=== PATIENT | female | born 1985 | race Two or more races ===

== ENCOUNTER 2016-11-15 05:49 | Day surgery (SDC) | payer OTHER, SELFPAY ==
[2016-11-15] MEDS ORDERED: Lactated Ringers 1,000 ML IV SCH (06:30)
[2016-11-15] MEDS ORDERED: Ketamine HCl 50 MG/ML IV ONE (08:00)
[2016-11-15] MEDS ORDERED: DIPRIVAN 200 MG/20 ML IV ONE (08:00)
[2016-11-15 08:26] VITALS: O2SAT 100
[2016-11-15 08:29] VITALS: BP 140/81; PULSE 61
--- NOTE | 2016-11-15 08:58 | OP ---
SURGERY DATE/TIME: 11/15/2016 0655 PREOPERATIVE DIAGNOSIS: Epigastric pain. POSTOPERATIVE DIAGNOSIS: Gastritis. PROCEDURE: Esophagogastroduodenoscopy with biopsy. SURGEON: Dr. Raymond. ANESTHESIA: Medications were given by the anesthesia department. BRIEF HISTORY: The patient is a 31 year old white female who presents now with epigastric pain. She reports taking medications and have been somewhat helpful but she persists to have the pain which she reports has been going on for two weeks. The patient also reports she is had gallbladder ultrasound which was apparently normal. The patient was felt the need to have endoscopic evaluation. She was appraised of the risks of the procedure including the risk of perforation, phlebitis, untoward reaction to medication, bleeding, and missed lesions. The patient verbalized her understanding and desired to have the procedure performed. DESCRIPTION OF PROCEDURE: The patient was given medications by the anesthesia department. She had continuous pulse oximetry, ECG monitoring, intermittent blood pressure monitoring and tidal CO2 monitoring during the examination. She was placed in the left lateral decubitus position. A bite block was placed. The flexible Olympus gastroscope was used to intubate the oropharynx. A view of the larynx was obtained and was normal. The scope was easily introduced in the esophagus which appeared to be normal throughout its length. The stomach was entered where some retained food stuffs were present but appeared to be quite oily in nature. The scope was passed along the greater curvature of the stomach. The gastric rugal folds distended nicely with insufflation of air. The scope was passed along the greater curvature of the stomach to the antrum. The pylorus is encountered and intubated and duodenum inspected and found to be normal. The scope is withdrawn back into the stomach. Again, a retroflex view was obtained of the lesser curvature, fundus and cardia regions of the stomach and these appeared to be normal as well. The scope was then redirected towards the antrum and biopsies were obtained to rule out the presence of Helicobacter pylori-type organisms. The scope was then removed from the patient who tolerated the procedure well and was sent back to outpatient recovery in good condition.
== END 2016-11-15 08:25 | disposition home or self-care (01) ==
LOC: SDC 05:49
PROVIDERS: ATTEND Family Medicine
PROC: 0DB68ZX Excision of Stomach, Via Natural or Artificial Opening Endoscopic, Diagnostic (ICD-10-PCS; principal; 2016-11-15)
DX: K29.70 Gastritis, unspecified, without bleeding (principal)
CPT/HCPCS: 00740; 36415; 84703; 88305; J2704

== ENCOUNTER 2018-05-22 07:29 | Emergency (ER) | payer OTHER, SELFPAY ==
[2018-05-22] MEDS ORDERED: Zofran 4 MG/2 ML VIAL IV ONE (08:02)
[2018-05-22] MEDS ORDERED: Sodium Chloride 0.9% 1000 ML 1,000 ML IV STA (08:02)
[2018-05-22] MEDS ORDERED: Hydromorphone 1 mg/ml Ampule IV ONE (08:02)
--- NOTE | 2018-05-22 08:02 | ERPHSYRPT ---
- History of Present Illness Time Seen by Provider: 05/22/18 07:50 Historian: patient Exam Limitations: no limitations Patient Subjective Stated Complaint: pt here for abd pain to left side that radiates to middle. pain started yesterday and getting worse, with loose stools and n/v. no fever Triage Nursing Assessment: pt walked in alert, crying, resp easy, skin w/d/p, abd tender to touch but soft, no edema Physician History: 33 y/o obese female with h/o c section in the past presents with left upper quadrant abd pain, vomiting x1 and diarrhea that began yesterday. no brbpr , no vaginal bleeding. pt has had a btl. no other abd surgeries Activities at Onset: none Quality: sharpness, stabbing Abdominal Pain Onset Location: [facility] Pain Radiation: periumbilical Severity of Pain-Max: moderate Severity of Pain-Current: moderate Modifying Factors: Improves With: nothing Associated Symptoms: diarrhea, loss of appetite, nausea, vomiting Previous symptoms: no prior history Allergies/Adverse Reactions: No Known Drug Allergies Allergy (Verified 05/22/18 07:45) Hx Tetanus, Diphtheria Vaccination/Date Given: Yes Hx Influenza Vaccination/Date Given: No Hx Pneumococcal Vaccination/Date Given: No Immunizations Up to Date: Yes - Review of Systems Constitutional: No Symptoms Eyes: No Symptoms Ears, Nose, & Throat: No Symptoms Respiratory: No Symptoms Cardiac: No Symptoms Abdominal/Gastrointestinal: Abdominal Pain, Nausea, Vomiting, Diarrhea Genitourinary Symptoms: No Symptoms Musculoskeletal: No Symptoms Skin: No Symptoms Neurological: No Symptoms Psychological: No Symptoms Endocrine: No Symptoms Hematologic/Lymphatic: No Symptoms Immunological/Allergic: No Symptoms All Other Systems: Reviewed and Negative - Past Medical History Pertinent Past Medical History: No Neurological History: No Pertinent History ENT History: No Pertinent History Cardiac History: No Pertinent History Respiratory History: No Pertinent History Endocrine Medical History: No Pertinent History Musculoskeletal History: No Pertinent History GI Medical History: GERD, Other History: No Pertinent History Psycho-Social History: No Pertinent History Female Reproductive Disorders: No Pertinent History Other Medical History: frequent UTIs,heartburn - Past Surgical History Past Surgical History: Yes Neuro Surgical History: No Pertinent History Cardiac: No Pertinent History Respiratory: No Pertinent History Gastrointestinal: No Pertinent History Genitourinary: Other Musculoskeletal: No Pertinent History Female Surgical History: No Pertinent History Other Surgical History: ureteral transplant - Social History Smoking Status: Current every day smoker How long have you smoked: 14 Exposure to second hand smoke: Yes Drug Use: none Patient Lives Alone: No - Female History Hx Last Menstrual Period: apr Hx Now: No - Nursing Vital Signs Nursing Vital Signs: Initial Vital Signs Temperature 97.9 F 05/22/18 07:40 Pulse Rate 83 05/22/18 07:40 Respiratory Rate 16 05/22/18 07:40 Blood Pressure 147/89 05/22/18 07:40 O2 Sat by Pulse Oximetry 100 05/22/18 07:40 Pain Scale Pain Intensity 6 - Physical Exam General Appearance: mild distress, alert, anxiety Eye Exam: PERRL/EOMI, eyes nml inspection Ears, Nose, Throat Exam: normal ENT inspection, pharynx normal, moist mucous membranes Neck Exam: normal inspection, non-tender, supple, full range of motion Respiratory Exam: normal breath sounds, lungs clear, airway intact, No respiratory distress, No accessory muscle use, No rhonchi, No wheezing, No stridor Cardiovascular Exam: regular rate/rhythm, normal heart sounds, normal peripheral pulses Gastrointestinal/Abdomen Exam: soft, normal bowel sounds, tenderness, guarding, rebound (+/-) Pelvic Exam: not done Rectal Exam: not done Back Exam: normal inspection, normal range of motion, No CVA tenderness, No vertebral tenderness Extremity Exam: normal inspection, normal range of motion, pelvis stable Neurologic Exam: alert, oriented x 3, cooperative, phonograph mechanic II-XII nml as tested Skin Exam: normal color, warm, dry Lymphatic Exam: No adenopathy SpO2 Interpretation: normal SpO2: 100 Oxygen Delivery: Room Air - Course Nursing assessment & vital signs reviewed: Yes Ordered Tests: Active Orders 24 hr Category Date Time Status Clean Catch Urine Specimen STAT Care 05/22/18 08:02 Active IV Insertion STAT Care 05/22/18 08:02 Active ABDOMEN AND PELVIS W CONTRAST [CT] Stat Exams 05/22/18 08:02 Completed AMYLASE Stat Lab 05/22/18 07:50 Completed CBC W DIFF Stat Lab 05/22/18 07:50 Completed CMP Stat Lab 05/22/18 07:50 Completed CULTURE,URINE Stat Lab 05/22/18 07:50 Received LIPASE Stat Lab 05/22/18 07:50 Completed Lactic Acid Stat Lab 05/22/18 08:07 Completed UA W/RFX UR CULTURE Stat Lab 05/22/18 07:50 Completed Medication Summary Discontinued Medications Generic Name Dose Route Start Last Admin Trade Name Andreas PRN Reason Stop Dose Admin Hydromorphone HCl 1 mg 05/22/18 08:02 05/22/18 08:13 Hydromorphone 1 Mg/Ml Ampule IV 05/22/18 08:03 1 mg STAT ONE Administration Hydromorphone HCl Confirm 05/22/18 08:10 Hydromorphone 1 Mg/Ml Ampule Administered 05/22/18 08:11 Dose 1 mg .ROUTE .STK-MED ONE Sodium Chloride 1,000 mls @ 999 mls/hr 05/22/18 08:02 05/22/18 09:43 Sodium Chloride 0.9% 1000 Ml IV 05/22/18 09:02 Infused .Q1H1M STA Infusion Sodium Chloride Confirm 05/22/18 08:10 Sodium Chloride 0.9% 1000 Ml Administered 05/22/18 08:11 Dose 1,000 mls @ ud .ROUTE .STK-MED ONE Ondansetron HCl 4 mg 05/22/18 08:02 05/22/18 08:13 Zofran 4 Mg/2 Ml Vial IV 05/22/18 08:03 4 mg STAT ONE Administration Ondansetron HCl Confirm 05/22/18 08:10 Zofran 4 Mg/2 Ml Vial Administered 05/22/18 08:11 Dose 4 mg .ROUTE .STK-MED ONE Lab/Rad Data: Laboratory Result Diagrams 05/22/18 07:50 05/22/18 07:50 Laboratory Results 05/22/18 05/22/18 05/22/18 Range/Units 08:07 07:50 07:50 WBC (4.0-10.5) K/mm3 RBC (4.1-5.4) M/mm3 Hgb (12.0-16.0) gm/dl Hct (35-47) % MCV (78-100) fl MCH (26-32) pg MCHC (32-36) g/dl RDW (11.5-14.0) % Plt Count (150-450) K/mm3 MPV (6-9.5) fl Gran % (36.0-66.0) % Eos # (Auto) (0-0.5) Absolute Lymphs (auto) (1.0-4.6) Absolute Monos (auto) (0.0-1.3) Lymphocytes % (24.0-44.0) % Monocytes % (0.0-12.0) % Eosinophils % (0.00-5.0) % Basophils % (0.0-0.4) % Absolute Granulocytes (1.4-6.9) Basophils # (0-0.4) Sodium 140 (137-145) mmol/L Potassium 4.3 (3.5-5.1) mmol/L Chloride 104 (98-107) mmol/L Carbon Dioxide 26 (22-30) mmol/L Anion Gap 13.8 (5-15) MEQ/L BUN 17 (7-17) mg/dL Creatinine 0.95 (0.52-1.04) mg/dL Estimated GFR > 60.0 ML/MIN Glucose 102 (74-106) mg/dL Lactic Acid 1.3 (0.4-2.0) Calcium 9.5 (8.4-10.2) mg/dL Total Bilirubin 0.70 (0.2-1.3) mg/dL AST 27 (14-36) U/L ALT 16 (0-35) U/L Alkaline Phosphatase 57 (38-126) U/L Serum Total Protein 8.5 H (6.3-8.2) g/dL Albumin 4.7 (3.5-5.0) g/dL Amylase 77 (30-110) U/L Lipase 168 (23-300) U/L Urine Color YELLOW (YELLOW) Urine Appearance CLOUDY (CLEAR) Urine pH 5.0 (5-6) Ur Specific [place] 1.023 (1.005-1.025) Urine Protein 30 (Negative) Urine Ketones NEGATIVE (NEGATIVE) Urine Blood NEGATIVE (0-5) Al/ul Urine Nitrite NEGATIVE (NEGATIVE) Urine Bilirubin NEGATIVE (NEGATIVE) Urine Urobilinogen NEGATIVE (0-1) mg/dL Ur Leukocyte Esterase NEGATIVE (NEGATIVE) Urine WBC (Auto) 0-2 (0-5) /HPF Urine RBC (Auto) NONE (0-2) /HPF U Epithel Cells (Auto) PACKED (FEW) /HPF Urine Bacteria (Auto) NONE (NEGATIVE) /HPF Urine Mucus (Auto) SLIGHT (NEGATIVE) /HPF Urine Culture Reflexed YES (NO) Urine Glucose NEGATIVE (NEGATIVE) mg/dL 05/22/18 Range/Units 07:50 WBC 6.3 (4.0-10.5) K/mm3 RBC 4.87 (4.1-5.4) M/mm3 Hgb 14.2 (12.0-16.0) gm/dl Hct 43.3 (35-47) % MCV 88.9 (78-100) fl MCH 29.2 (26-32) pg MCHC 32.8 (32-36) g/dl RDW 13.2 (11.5-14.0) % Plt Count 385 (150-450) K/mm3 MPV 9.0 (6-9.5) fl Gran % 66.3 H (36.0-66.0) % Eos # (Auto) 0.20 (0-0.5) Absolute Lymphs (auto) 1.29 (1.0-4.6) Absolute Monos (auto) 0.62 (0.0-1.3) Lymphocytes % 20.4 L (24.0-44.0) % Monocytes % 9.8 (0.0-12.0) % Eosinophils % 3.2 (0.00-5.0) % Basophils % 0.3 (0.0-0.4) % Absolute Granulocytes 4.20 (1.4-6.9) Basophils # 0.02 (0-0.4) Sodium (137-145) mmol/L Potassium (3.5-5.1) mmol/L Chloride (98-107) mmol/L Carbon Dioxide (22-30) mmol/L Anion Gap (5-15) MEQ/L BUN (7-17) mg/dL Creatinine (0.52-1.04) mg/dL Estimated GFR ML/MIN Glucose (74-106) mg/dL Lactic Acid (0.4-2.0) Calcium (8.4-10.2) mg/dL Total Bilirubin (0.2-1.3) mg/dL AST (14-36) U/L ALT (0-35) U/L Alkaline Phosphatase (38-126) U/L Serum Total Protein (6.3-8.2) g/dL Albumin (3.5-5.0) g/dL Amylase (30-110) U/L Lipase (23-300) U/L Urine Color (YELLOW) Urine Appearance (CLEAR) Urine pH (5-6) Ur Specific [place] (1.005-1.025) Urine Protein (Negative) Urine Ketones (NEGATIVE) Urine Blood (0-5) Al/ul Urine Nitrite (NEGATIVE) Urine Bilirubin (NEGATIVE) Urine Urobilinogen (0-1) mg/dL Ur Leukocyte Esterase (NEGATIVE) Urine WBC (Auto) (0-5) /HPF Urine RBC (Auto) (0-2) /HPF U Epithel Cells (Auto) (FEW) /HPF Urine Bacteria (Auto) (NEGATIVE) /HPF Urine Mucus (Auto) (NEGATIVE) /HPF Urine Culture Reflexed (NO) Urine Glucose (NEGATIVE) mg/dL - Progress Progress: improved, pain not gone completely, re-examined Progress Note: 05/22/18 10:01 ct scan abd/pelvis- small bowel enteritis; nl appendix. pt clinically improved. Counseled pt/family regarding: lab results, diagnosis, need for follow-up, rad results - Departure Time of Disposition: 10:02 Departure Disposition: Home Clinical Impression: Enteritis Condition: Stable Critical Care Time: No Referrals: LIZBETH BRAUN [Primary Care Provider] - Additional Instructions: clear liquid diet until abdominal pain is gone then advance diet as tolerated. follow up with primary doctor for further management. Prescriptions: Hydrocodone/APAP 5/325 [[place] 5/325 mg] 1 each PO Q6H PRN PRN #10 tablet MDD 4 PRN Reason: Pain Ciprofloxacin [Cipro 500 MG] 500 mg PO BID #14 tablet Metronidazole 500 mg [Flagyl 500 MG] 500 mg PO TID #21 tablet
[2018-05-22] MEDS ORDERED: Hydromorphone 1 mg/ml Ampule ONE (08:10)
[2018-05-22] MEDS ORDERED: Zofran 4 MG/2 ML VIAL ONE (08:10)
[2018-05-22] MEDS ORDERED: Sodium Chloride 0.9% 1000 ML 1,000 ML ONE (08:10)
[2018-05-22 08:11] LABS: BASOPHIL % 0.3 % (0.0-0.4); Basophil (Absolute #) 0.02 (0-0.4); Eosinophil % 3.2 % (0.00-5.0); Granulocytes % 66.3 % (36.0-66.0); Hematocrit 43.3 % (35-47); Hemoglobin 14.2 gm/dl (12.0-16.0); Lymphocyte (Absolute #) 1.29 (1.0-4.6); Lymphocytes % 20.4 % (24.0-44.0); Mean Cell Volume 88.9 fl (78-100); Mean Corpuscular Hemoglobin 29.2 pg (26-32); Mean Corpuscular Hgb Concent. 32.8 g/dl (32-36); Monocyte (Absolute #) 0.62 (0.0-1.3); Monocytes % 9.8 % (0.0-12.0); Platelet Count 385 K/mm3 (150-450); Red Blood Count 4.87 M/mm3 (4.1-5.4); Red Cell Distribution Width 13.2 % (11.5-14.0); White Blood Count 6.3 K/mm3 (4.0-10.5)
[2018-05-22 08:16] LABS: Appearance CLOUDY (CLEAR); Bilirubin NEGATIVE (NEGATIVE); Blood NEGATIVE Ery/ul (0-5); Glucose NEGATIVE (NEGATIVE); Ketones NEGATIVE (NEGATIVE); Leukocyte Esterase NEGATIVE (NEGATIVE); Nitrite NEGATIVE (NEGATIVE); Protein,Urine Dip 30 (Negative); Specific Gravity 1.023 (1.005-1.025); Urobilinogen NEGATIVE mg/dL (0-1)
[2018-05-22 08:27] LABS: ALBUMIN 4.7 g/dL (3.5-5.0); ALKALINE PHOSPHATASE 57 U/L (38-126); AMYLASE 77 U/L (30-110); ANION GAP 13.8 MEQ/L (5-15); BLOOD UREA NITROGEN 17 mg/dL (7-17); CHLORIDE 104 mmol/L (98-107); Calcium 9.5 mg/dL (8.4-10.2); Carbon Dioxide 26 mmol/L (22-30); Creatinine 1 0.95 mg/dL (0.52-1.04); Glucose 102 mg/dL (74-106); LIPASE 168 U/L (23-300); Potassium 4.3 mmol/L (3.5-5.1); SGOT/AST 27 U/L (14-36); SGPT/ALT 16 U/L (0-35); SODIUM 140 mmol/L (137-145); Total Protein 8.5 g/dL (6.3-8.2)
--- NOTE | 2018-05-22 09:17 | XRAY ---
Indication: Left upper quadrant abdominal pain. History infection. Multiple contiguous axial images obtained through the abdomen and pelvis using 80 cc Isovue 370 contrast only. Comparison: April 25, 2016. Lung bases demonstrates minimal bibasilar dependent atelectasis with stable left base subsegmental atelectasis/scarring. New incompletely visualized 4 mm right base noncalcified nodule, probably granulomatous in this demographic. No infiltrate or effusion. Heart is not enlarged. Noncontrasted stomach and bowel loops appear nonobstructed. Ileal bowel loops in the right lower quadrant now appears mildly fluid distended with wall thickening/enhancement, focal ileus versus enteritis. Involvement of the terminal ileum also suggests Crohn's disease. Normal appendix. No free fluid/air. Stable partial left ureteral duplication. Remaining liver, gallbladder, pancreas, spleen, adrenal glands, kidneys, ureters, bladder, and aorta appear normal in CT appearance and attenuation. No pathologic retroperitoneal lymphadenopathy. Osseous structures intact. No ventral or inguinal hernias. Impression: 1. New mild fluid distended ileal bowel loops with wall thickening/enhancement including the terminal ileum. Partial differential includes focal ileus, enteritis, and Crohn's disease. 2. 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 3. New right lower lobe noncalcified micronodule probably granulomatous in this demographic. 4. Remaining CT abdomen/pelvis with contrast exam is negative. CT DI 23.68
[2018-05-22] MEDS ORDERED: Cipro 500 MG PO ONE (10:00)
[2018-05-22] MEDS ORDERED: Flagyl 500 MG PO ONE (10:00)
[2018-05-22] MEDS ORDERED: solu-MEDROL 125 MG IV ONE (10:01)
[2018-05-22] MEDS ORDERED: Cipro 500 MG ONE (10:08)
[2018-05-22] MEDS ORDERED: solu-MEDROL 125 MG ONE (10:09)
[2018-05-22] MEDS ORDERED: Flagyl 500 MG ONE (10:09)
[2018-05-22 10:21] VITALS: BP 126/69; PULSE 62; O2SAT 99
[2018-05-22] MEDS ORDERED: Norco 10/325 MG Tablet PO ONE (10:38)
[2018-05-22] MEDS ORDERED: Norco 10/325 MG Tablet ONE (10:40)
== END 2018-05-22 10:33 | disposition home or self-care (01) ==
LOC: ED 07:29
DX: K52.9 Noninfective gastroenteritis and colitis, unspecified (principal); R10.12 Left upper quadrant pain; R11.2 Nausea with vomiting, unspecified
CPT/HCPCS: 36415; 74177; 80053; 81001; 82150; 83605; 83690; 85025; 87086; 96360; 96374; 96375; 99284; A9270; J1170; J2405; J2930

== ENCOUNTER 2019-10-06 00:03 | Emergency (ER) | payer OTHER ==
[2019-10-06 00:37] VITALS: O2SAT 100
--- NOTE | 2019-10-06 00:48 | ERPHSYRPT ---
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 Patient A/O times 4. Patient answers questions appropriatley. Laceration noted to back of left lower extremity that measures 9 CM. No active bleeding noted. Edges of wound appear rolled under. Adipose tissue noted. No drainage or S/S of infection noted. Cap refill of left great toe < 3 seconds. Slight swelling noted to back of leg. Patient states area is burning like fire. Patient able to apply weight to leg. Physician History: About 50 minutes ago at home pt was standing on a chair and her left leg went through it with resultant laceration to her left leg. Pt denies numbness of her left leg/foot. Last tetanus was within 5 years. Allergies/Adverse Reactions: No Known Drug Allergies Allergy (Verified 10/06/19 00:37) Hx Tetanus, Diphtheria Vaccination/Date Given: No Hx Influenza Vaccination/Date Given: No Hx Pneumococcal Vaccination/Date Given: No Immunizations Up to Date: Yes Travel Risk - International Travel Have you traveled outside of the country in past 3 weeks: No Have you or anyone close to you been diagnosed with or: No Do your reside in a community with a known COVID-19 case?: Yes If Yes where:: [facility] - Coronavirus Screening Has patient experienced Coronavirus symptoms: No - Review of Systems Musculoskeletal: Other (laceration to left leg) - Past Medical History Pertinent Past Medical History: No Neurological History: No Pertinent History ENT History: No Pertinent History Cardiac History: No Pertinent History Respiratory History: No Pertinent History Endocrine Medical History: No Pertinent History Musculoskeletal History: No Pertinent History GI Medical History: GERD, Other History: No Pertinent History Psycho-Social History: No Pertinent History Female Reproductive Disorders: No Pertinent History Other Medical History: frequent UTIs,heartburn - Past Surgical History Past Surgical History: Yes Neuro Surgical History: No Pertinent History Cardiac: No Pertinent History Respiratory: No Pertinent History Gastrointestinal: No Pertinent History Genitourinary: No Pertinent History, Other Musculoskeletal: No Pertinent History Female Surgical History: Tubal Ligation Other Surgical History: ureteral transplant - Social History Smoking Status: Current every day smoker How long have you smoked: 6 years Exposure to second hand smoke: Yes Drug Use: none Patient Lives Alone: No - Female History Hx Last Menstrual Period: Tubal Hx Now: No - Nursing Vital Signs Nursing Vital Signs: Initial Vital Signs Temperature 98.1 F 10/06/19 00:22 Pulse Rate 86 10/06/19 00:22 Respiratory Rate 16 10/06/19 00:22 Blood Pressure 159/95 10/06/19 00:22 O2 Sat by Pulse Oximetry 100 10/06/19 00:22 Pain Scale Pain Intensity 5 - Physical Exam General Appearance: alert Hips Exam: left: normal range of motion Legs Exam: right leg: other (9cm irregular laceration to posteriolateral mid aspect of left leg with mild tenderness.), left leg: normal range of motion Knees Exam: left knee: normal range of motion Ankle Exam: left ankle: normal range of motion Foot Exam: left foot: normal range of motion Mental Status Exam: alert, cooperative SpO2 Interpretation: normal SpO2: 100 O2 Delivery: Room Air Procedures - Laceration/Wound Repair Left Posterior Lateral Calf Wound Location: Left, lower leg Wound Length (cm): 9 Wound's Depth, Shape: irregular Wound Explored: clean Irrigated: Yes Hibiclens Prep: Yes Anesthesia: 1% lidocaine w/ Epi Volume Anesthetic (ccs): 2 Wound Repaired With: sutures Suture Size/Type: 4-0, prolene Number of Sutures: 35 Layer Closure?: No - Course Nursing assessment & vital signs reviewed: Yes - Radiology Exams Left Lower Leg X-ray Interpretation: Interpreted by me (no fx) Ordered Tests: Active Orders 24 hr Category Date Time Status Prepare for Sutures STAT Care 10/06/19 00:54 Active Sutures STAT Care 10/06/19 00:54 Active Wound Care STAT Care 10/06/19 00:54 Active LOWER LEG Stat Exams 10/06/19 00:53 Taken Medication Summary Discontinued Medications Generic Name Dose Route Start Last Admin Trade Name Freq PRN Reason Stop Dose Admin Cephalexin HCl 500 mg 10/06/19 05:24 Keflex 500 Mg PO 10/06/19 05:25 STAT ONE Lidocaine/Epinephrine 5 ml 10/06/19 04:26 10/06/19 04:39 Xylocaine 1%/Epi 1:580225 Mdv 20 Ml IJ 10/06/19 04:27 5 ml STAT ONE Administration Lidocaine/Epinephrine Confirm 10/06/19 04:38 Xylocaine 1%/Epi 1:011998 Mdv 20 Ml Administered 10/06/19 04:39 Dose 15 ml .ROUTE .STK-MED ONE Lidocaine/Epinephrine 5 ml 10/06/19 04:41 10/06/19 04:43 Xylocaine 1%/Epi 1:[id number] Mdv 20 Ml IJ 10/06/19 04:42 5 ml STAT ONE Administration Lidocaine/Epinephrine 5 ml 10/06/19 04:43 10/06/19 04:46 Xylocaine 1%/Epi 1:198191 Mdv 20 Ml IJ 10/06/19 04:44 5 ml STAT ONE Administration - Progress Progress: improved Counseled pt/family regarding: rad results - Departure Departure Disposition: Home Clinical Impression: 9 cm laceration to left leg Condition: Stable Critical Care Time: No Referrals: LIZBETH BRAUN [Primary Care Provider] - Instructions: Laceration Repair With Stitches (DC) Additional Instructions: Follow up with private doctor tomorrow. Keep clean & dry. Neosporin & bandage daily to left leg wound. Have sutures removed in 10 days. Forms: Work/School Release Form Prescriptions: Cephalexin Monohydrate [Keflex] 500 mg PO TID #20 capsule
[2019-10-06] MEDS ORDERED: XYLOCAINE 1%/Epi 1:100000 MDV 20 ML IJ ONE ×3 (04:26→04:43)
[2019-10-06] MEDS ORDERED: XYLOCAINE 1%/Epi 1:100000 MDV 20 ML ONE (04:38)
[2019-10-06] MEDS ORDERED: KEFLEX 500 MG PO ONE (05:24)
[2019-10-06] MEDS ORDERED: KEFLEX 500 MG ONE (06:01)
[2019-10-06 06:19] VITALS: BP 130/84; PULSE 60
--- NOTE | 2019-10-06 08:43 | XRAY ---
Indication: Calf laceration. Comparison: None 2 views of the left lower leg demonstrates posterior lateral laceration without radiopaque foreign body. Incidental proximal fibula shaft healed fibrous cortical defect and small posterior knee fabella. No other bony, articular, or soft tissue abnormalities.
== END 2019-10-06 06:19 | disposition home or self-care (01) ==
LOC: ED 00:03
DX: S81.812A Laceration without foreign body, left lower leg, initial encounter (principal); W22.09XA Striking against other stationary object, initial encounter; Y93.89 Activity, other specified; M79.89 Other specified soft tissue disorders
CPT/HCPCS: 12004; 73590; 99284; A9270-GY

== ENCOUNTER 2019-10-16 14:52 | Emergency (ER) | payer OTHER ==
--- NOTE | 2019-10-16 15:06 | ERPHSYRPT ---
- History of Present Illness Time Seen by Provider: 10/16/19 15:05 Source: patient Exam Limitations: no limitations Physician History: Patient is a 34-year-old female presents to our ED for removal of sutures. Patient's family doctor referred our patient to us for suture removal. The sutures have been in place for approximately 12 to 14 days. Patient is currently on antibiotics. Tetanus is reported up-to-date. No other interval problems or concerns at this time. Patient simply wants her sutures removed. Patient voices no other complaints or concerns at this time. There are 32 sutures vertically and 10 sutures horizontally. Timing/Duration: week(s) (2) Quality: painful Severity: mild (Sutures are located at the left calf.) Location: other (Left calf) Associated Symptoms: No difficulty breathing, No edema, No nasal congestion, No paresthesia, No petechiae Allergies/Adverse Reactions: No Known Drug Allergies Allergy (Verified 10/16/19 14:59) Hx Tetanus, Diphtheria Vaccination/Date Given: No Hx Influenza Vaccination/Date Given: No Hx Pneumococcal Vaccination/Date Given: No Travel Risk - International Travel Have you traveled outside of the country in past 3 weeks: No Have you or anyone close to you been diagnosed with or: No Do your reside in a community with a known COVID-19 case?: Yes If Yes where:: [place] - Review of Systems Constitutional: No Symptoms, No Fever, No Chills Eyes: No Symptoms Ears, Nose, & Throat: No Symptoms Respiratory: No Symptoms, No Cough, No Dyspnea Cardiac: No Symptoms, No Chest Pain, No Edema, No Syncope Abdominal/Gastrointestinal: No Symptoms, No Abdominal Pain, No Nausea, No Vomiting, No Diarrhea Genitourinary Symptoms: No Symptoms, No Dysuria Musculoskeletal: No Symptoms, No Back Pain, No Neck Pain Skin: No Symptoms, No Rash Neurological: No Symptoms, No Dizziness, No Focal Weakness, No Sensory Changes Psychological: No Symptoms Endocrine: No Symptoms Hematologic/Lymphatic: No Symptoms Immunological/Allergic: No Symptoms All Other Systems: Reviewed and Negative - Past Medical History Pertinent Past Medical History: No Neurological History: No Pertinent History ENT History: No Pertinent History Cardiac History: No Pertinent History Respiratory History: No Pertinent History Endocrine Medical History: No Pertinent History Musculoskeletal History: No Pertinent History GI Medical History: GERD, Other History: No Pertinent History Psycho-Social History: No Pertinent History Female Reproductive Disorders: No Pertinent History Other Medical History: frequent UTIs,heartburn - Past Surgical History Past Surgical History: Yes Neuro Surgical History: No Pertinent History Cardiac: No Pertinent History Respiratory: No Pertinent History Gastrointestinal: No Pertinent History Genitourinary: No Pertinent History, Other Musculoskeletal: No Pertinent History Female Surgical History: Tubal Ligation Other Surgical History: ureteral transplant - Social History Smoking Status: Current every day smoker How long have you smoked: 6 years Exposure to second hand smoke: Yes Drug Use: none Patient Lives Alone: No - Nursing Vital Signs Nursing Vital Signs: Initial Vital Signs Temperature 98.0 F 10/16/19 15:01 Pulse Rate 108 H 10/16/19 15:01 Respiratory Rate 20 10/16/19 15:01 O2 Sat by Pulse Oximetry 100 10/16/19 15:01 Pain Scale Pain Intensity 4 - Physical Exam General Appearance: no apparent distress, alert Eye Exam: PERRL/EOMI, eyes nml inspection Ears, Nose, Throat Exam: normal ENT inspection, pharynx normal, moist mucous membranes Neck Exam: normal inspection, non-tender, supple, full range of motion Respiratory Exam: normal breath sounds, lungs clear, No respiratory distress Cardiovascular Exam: regular rate/rhythm, normal heart sounds Gastrointestinal/Abdomen Exam: soft, mass, No tenderness Back Exam: normal inspection, normal range of motion, No CVA tenderness, No vertebral tenderness Extremity Exam: normal inspection, normal range of motion Neurologic Exam: alert, oriented x 3, cooperative, normal mood/affect, sensation nml, No motor deficits Skin Exam: normal color, warm, dry, laceration (Patient has a well-healing wound. There is erythema possible hyperemia possible cellulitis surrounding the wound. Patient is currently on oral antibiotics.) - Course Nursing assessment & vital signs reviewed: Yes - Radiology Ultrasound Exam Venous Lower Extremity Ultrasound: tele radiology report (Negative for DVT) Ordered Tests: Active Orders 24 hr Category Date Time Status VENOUS UNILAT/LIMITED EXTREMIT [US] Stat Exams 10/16/19 15:43 Completed - Departure Departure Disposition: Home Clinical Impression: Visit for suture removal Condition: Stable Critical Care Time: No Referrals: LIZBETH BRAUN [Primary Care Provider] - Additional Instructions: You have an appointment with Dr. Braun next Monday, in 2 days at 10 AM. Discharge/Care Plan MARC CLAIRE was seen on 10/16/19 in the Emergency Room. The patient was counseled regarding Diagnosis,Lab results, Imaging studies, need for follow up and when to return to the Emergency Room. Prescriptions given: Discharge Note I have spoken with the patient and/or caregivers. I have explained the patient' s condition, diagnosis and treatment plan based on the information available to me at this time. I have answered the patient's and/or caregiver's questions and addressed any concerns. The patient and/or caregivers have as good understanding of the patient's diagnosis, condition and treatment plan as can be expected at this point. The vital signs have been stable. The patient's condition is stable and appropriate for discharge from the emergency department. The patient will pursue further outpatient evaluation with the primary care physician or other designated or consulting physician as outlined in the discharge instructions. The patient and/or caregivers are agreeable to this plan of care and follow-up instructions have been explained in detail. The patient and/or caregivers have received these instruction. The patient/and or caregivers are aware that any significant change in condition or worsening of symptoms should prompt an immediate return to this or the closest emergency department or call 911.
[2019-10-16 15:09] VITALS: O2SAT 100
--- NOTE | 2019-10-16 16:23 | XRAY ---
Indication: Left leg pain following injury. Two-dimensional sonogram and color Doppler imaging of the major venous vessels of the left leg was performed. Comparison: None No thrombus seen in the examined deep venous vessels of the left leg including greater saphenous vein. Veins demonstrate normal compressibility. Venous waveforms are normal with and without augmentation. Impression: Left leg negative for DVT.
[2019-10-16 17:04] VITALS: BP 141/96; PULSE 89
== END 2019-10-16 17:04 | disposition home or self-care (01) ==
LOC: ED 14:52
DX: Z48.02 Encounter for removal of sutures (principal)
CPT/HCPCS: 93971; 99283; G0463

== ENCOUNTER 2020-02-10 19:21 | Emergency (ER) | payer OTHER ==
--- NOTE | 2020-02-10 19:27 | ERPHSYRPT ---
- History of Present Illness Time Seen by Provider: 02/10/20 19:27 Source: patient, EMS Exam Limitations: no limitations Physician History: This is a 35-year-old female who is not on any medication but states that she does have a history of high blood pressure in the past. Patient states her doctor is Dr. Maury Gold. Patient is under a lot of stress. She broke up with her boyfriend and today had a family fight prior to arrival. Patient states that she had a panic attack which led to chest pain and numbness in her hands. Patient has no known cardiac disease. Patient is not short of breath. Patient was given 4 baby aspirin and 1 nitroglycerin sublingual by EMS. EMS brought her into the emergency department. Patient arrives anxious and tearful Timing/Duration: today Severity: moderate Associated Symptoms: chest pain Allergies/Adverse Reactions: No Known Drug Allergies Allergy (Verified 02/10/20 19:27) Hx Tetanus, Diphtheria Vaccination/Date Given: No Hx Influenza Vaccination/Date Given: No Hx Pneumococcal Vaccination/Date Given: No Travel Risk - International Travel Have you traveled outside of the country in past 3 weeks: No - Coronavirus Screening Are you exhibiting any of the following symptoms?: No Close contact with a COVID-19 positive Pt in past 14-21 Days: No - Review of Systems Constitutional: No Symptoms Eyes: No Symptoms Ears, Nose, & Throat: No Symptoms Respiratory: No Symptoms Cardiac: Chest Pain Abdominal/Gastrointestinal: No Symptoms Genitourinary Symptoms: No Symptoms Musculoskeletal: No Symptoms Skin: No Symptoms Neurological: No Symptoms Psychological: Anxiety, Other (Tearful) Endocrine: No Symptoms Hematologic/Lymphatic: No Symptoms Immunological/Allergic: No Symptoms All Other Systems: Reviewed and Negative - Past Medical History Pertinent Past Medical History: No Neurological History: No Pertinent History ENT History: No Pertinent History Cardiac History: No Pertinent History Respiratory History: No Pertinent History Endocrine Medical History: No Pertinent History Musculoskeletal History: No Pertinent History GI Medical History: GERD, Other History: No Pertinent History Psycho-Social History: No Pertinent History Female Reproductive Disorders: No Pertinent History Other Medical History: frequent UTIs,heartburn - Past Surgical History Past Surgical History: Yes Neuro Surgical History: No Pertinent History Cardiac: No Pertinent History Respiratory: No Pertinent History Gastrointestinal: No Pertinent History Genitourinary: No Pertinent History, Other Musculoskeletal: No Pertinent History Female Surgical History: Tubal Ligation Other Surgical History: ureteral transplant - Social History Smoking Status: Current every day smoker How long have you smoked: 6 years Exposure to second hand smoke: Yes Drug Use: none Patient Lives Alone: No - Nursing Vital Signs Nursing Vital Signs: Initial Vital Signs Temperature 98.5 F 02/10/20 19:27 Pulse Rate 85 02/10/20 19:27 Respiratory Rate 24 02/10/20 19:27 Blood Pressure 168/111 02/10/20 19:27 O2 Sat by Pulse Oximetry 100 02/10/20 19:27 Pain Scale Pain Intensity 5 - Physical Exam General Appearance: no apparent distress, alert, anxiety Eye Exam: PERRL/EOMI, eyes nml inspection Ears, Nose, Throat Exam: normal ENT inspection, moist mucous membranes Neck Exam: normal inspection, non-tender, supple, full range of motion Respiratory Exam: normal breath sounds, lungs clear, respiratory distress, airway intact, No chest tenderness, No accessory muscle use Cardiovascular Exam: regular rate/rhythm, normal heart sounds, normal peripheral pulses Gastrointestinal/Abdomen Exam: soft, normal bowel sounds, No tenderness Pelvic Exam: not done Rectal Exam: not done Back Exam: normal inspection, normal range of motion, No CVA tenderness, No vertebral tenderness Extremity Exam: normal inspection, normal range of motion, pelvis stable Neurologic Exam: alert, oriented x 3, cooperative, 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 There is no comparison EKG av ailable) Ordered Tests: Active Orders 24 hr Category Date Time Status Dining Manager STAT Care 02/10/20 19:36 Active EKG-ER Only STAT Care 02/10/20 19:35 Active IV Insertion STAT Care 02/10/20 19:35 Active Pulse Oximetry (ED) STAT Care 02/10/20 19:35 Active CHEST 1 VIEW (PORTABLE) Stat Exams 02/10/20 19:36 Taken CBC W DIFF Stat Lab 02/10/20 19:55 Completed CMP Stat Lab 02/10/20 19:55 Completed D-DIMER QUANTITATIVE Stat Lab 08/03/20 19:55 Completed HCG QUALITATIVE,SERUM Stat Lab 02/10/20 19:55 Received TROPONIN Q3H Lab 02/10/20 19:55 Completed TROPONIN Q3H Lab 02/10/20 22:45 Ordered TROPONIN Q3H Lab 02/11/20 01:45 Ordered TROPONIN Q3H Lab 02/11/20 04:45 Ordered TROPONIN Q3H Lab 02/11/20 07:45 Ordered Medication Summary Discontinued Medications Generic Name Dose Route Start Last Admin Trade Name Freq PRN Reason Stop Dose Admin Lorazepam 1 mg 02/10/20 19:37 02/10/20 19:41 Ativan 2 Mg/1 Ml Vial IV 02/10/20 19:38 1 mg STAT ONE Administration Lorazepam Confirm 02/10/20 19:41 Ativan 2 Mg/1 Ml Vial Administered 02/10/20 19:42 Dose 2 mg .ROUTE .STK-MED ONE Lab/Rad Data: Laboratory Result Diagrams 02/10/20 19:55 02/10/20 19:55 Laboratory Results 02/10/20 02/10/20 02/10/20 Range/Units 19:55 19:55 19:55 WBC (4.0-10.5) K/mm3 RBC (4.1-5.4) M/mm3 Hgb (12.0-16.0) gm/dl Hct (35-47) % MCV (78-100) fl MCH (26-32) pg MCHC (32-36) g/dl RDW (11.5-14.0) % Plt Count (150-450) K/mm3 MPV (7.5-11.0) fl Gran % (36.0-66.0) % Eos # (Auto) (0-0.5) Absolute Lymphs (auto) (1.0-4.6) Absolute Monos (auto) (0.0-1.3) Lymphocytes % (24.0-44.0) % Monocytes % (0.0-12.0) % Eosinophils % (0.00-5.0) % Basophils % (0.0-0.4) % Absolute Granulocytes (1.4-6.9) Basophils # (0-0.4) D-Dimer 241 (215-500) ng/mL Sodium 139 (137-145) mmol/L Potassium 3.4 L (3.5-5.1) mmol/L Chloride 105 (98-107) mmol/L Carbon Dioxide 24 (22-30) mmol/L Anion Gap 12.2 (5-15) MEQ/L BUN 16 (7-17) mg/dL Creatinine 1.01 (0.52-1.04) mg/dL Estimated GFR > 60.0 ML/MIN Glucose 91 (74-106) mg/dL Calcium 9.7 (8.4-10.2) mg/dL Total Bilirubin 0.70 (0.2-1.3) mg/dL AST 23 (14-36) U/L ALT 14 (0-35) U/L Alkaline Phosphatase 64 (38-126) U/L Troponin I < 0.012 (0.000-0.034) ng/mL Serum Total Protein 8.4 H (6.3-8.2) g/dL Albumin 4.6 (3.5-5.0) g/dL 02/10/20 Range/Units 19:55 WBC 7.2 (4.0-10.5) K/mm3 RBC 4.64 (4.1-5.4) M/mm3 Hgb 13.3 (12.0-16.0) gm/dl Hct 41.4 (35-47) % MCV 89.2 (78-100) fl MCH 28.7 (26-32) pg MCHC 32.1 (32-36) g/dl RDW 13.7 (11.5-14.0) % Plt Count 423 (150-450) K/mm3 MPV 8.8 (7.5-11.0) fl Gran % 58.7 (36.0-66.0) % Eos # (Auto) 0.08 (0-0.5) Absolute Lymphs (auto) 1.98 (1.0-4.6) Absolute Monos (auto) 0.90 (0.0-1.3) Lymphocytes % 27.4 (24.0-44.0) % Monocytes % 12.4 H (0.0-12.0) % Eosinophils % 1.1 (0.00-5.0) % Basophils % 0.4 (0.0-0.4) % Absolute Granulocytes 4.24 (1.4-6.9) Basophils # 0.03 (0-0.4) D-Dimer (215-500) ng/mL Sodium (137-145) mmol/L Potassium (3.5-5.1) mmol/L Chloride (98-107) mmol/L Carbon Dioxide (22-30) mmol/L Anion Gap (5-15) MEQ/L BUN (7-17) mg/dL Creatinine (0.52-1.04) mg/dL Estimated GFR ML/MIN Glucose (74-106) mg/dL Calcium (8.4-10.2) mg/dL Total Bilirubin (0.2-1.3) mg/dL AST (14-36) U/L ALT (0-35) U/L Alkaline Phosphatase (38-126) U/L Troponin I (0.000-0.034) ng/mL Serum Total Protein (6.3-8.2) g/dL Albumin (3.5-5.0) g/dL - Progress Progress: improved, pain not gone completely, re-examined Progress Note: 02/10/20 19:51 Patient's chest pain on arrival by EMS was 5 out of 10. Her chest pain after 4 baby aspirin and nitroglycerin was a 2 out of 10 on arrival to the emergency department. 02/10/20 20:43 I am looking at the patient's most recent blood pressure is 130/83. This is her discharge blood pressure. Patient denies chest pain. Patient is much less anxious now. 02/10/20 20:43 Chest x-ray shows no acute pulmonary process Counseled pt/family regarding: lab results, diagnosis, need for follow-up, rad results - Departure Departure Disposition: Home Clinical Impression: Panic attack, Chest pain, High blood pressure Condition: Stable Critical Care Time: No Additional Instructions: Follow-up with your primary care physician for further management.
[2020-02-10] MEDS ORDERED: Ativan 2 MG/1 ML VIAL ONE (19:41)
[2020-02-10] MEDS: Ativan 2 MG/1 ML VIAL IV ONE (19:41)
[2020-02-10 20:07] LABS: Absolute Neutrophil Ct (ANC) 4.24 (1.4-6.9); BASOPHIL % 0.4 % (0.0-0.4); Basophil (Absolute #) 0.03 (0-0.4); Eosinophil % 1.1 % (0.00-5.0); Eosinophil (Absolute #) 0.08 (0-0.5); Hematocrit 41.4 % (35-47); Hemoglobin 13.3 gm/dl (12.0-16.0); Lymphocyte (Absolute #) 1.98 (1.0-4.6); Lymphocytes % 27.4 % (24.0-44.0); Mean Cell Volume 89.2 fl (78-100); Mean Corpuscular Hemoglobin 28.7 pg (26-32); Mean Corpuscular Hgb Concent. 32.1 g/dl (32-36); Mean Platelet Volume 8.8 fl (7.5-11.0); Monocytes % 12.4 % (0.0-12.0); Neutrophil % 58.7 % (36.0-66.0); Platelet Count 423 K/mm3 (150-450); Red Blood Count 4.64 M/mm3 (4.1-5.4); Red Cell Distribution Width 13.7 % (11.5-14.0); White Blood Count 7.2 K/mm3 (4.0-10.5)
[2020-02-10 20:24] LABS: ALBUMIN 4.6 g/dL (3.5-5.0); ALKALINE PHOSPHATASE 64 U/L (38-126); ANION GAP 12.2 MEQ/L (5-15); BLOOD UREA NITROGEN 16 mg/dL (7-17); CHLORIDE 105 mmol/L (98-107); Calcium 9.7 mg/dL (8.4-10.2); Carbon Dioxide 24 mmol/L (22-30); Creatinine 1 1.01 mg/dL (0.52-1.04); Glucose 91 mg/dL (74-106); Potassium 3.4 mmol/L (3.5-5.1); SGOT/AST 23 U/L (14-36); SGPT/ALT 14 U/L (0-35); SODIUM 139 mmol/L (137-145); Total Protein 8.4 g/dL (6.3-8.2)
[2020-02-10 20:35] VITALS: BP 130/83; PULSE 86; O2SAT 98
--- NOTE | 2020-02-11 08:58 | XRAY ---
Indication: Chest pain. Comparison: None Portable chest demonstrates normal heart, lungs, and bony thorax.
== END 2020-02-10 20:55 | disposition home or self-care (01) ==
LOC: ED 19:21
DX: F41.0 Panic disorder [episodic paroxysmal anxiety] (principal); R07.9 Chest pain, unspecified; R03.0 Elevated blood-pressure reading, without diagnosis of hypertension
CPT/HCPCS: 36415; 71045; 80053; 81025; 84484; 85025; 85379; 93005; 93041; 94760; 96374; 99284; J2060

== ENCOUNTER 2021-11-28 22:00 | Emergency (ER) | payer OTHER ==
[2021-11-28] MEDS ORDERED: solu-MEDROL 125 MG, Sterile H2O 10 ml 2 ML IM ONE ×2 (22:32)
[2021-11-28] MEDS ORDERED: PERCOCET TABLET 5/325MG PO ONE (22:33)
[2021-11-28] MEDS ORDERED: Sterile H2O 10 ml IJ ONE (22:38)
[2021-11-28] MEDS ORDERED: PERCOCET TABLET 5/325MG ONE (22:38)
[2021-11-28] MEDS ORDERED: solu-MEDROL ONE (22:38)
--- NOTE | 2021-11-28 22:45 | ERPHSYRPT ---
- History of Present Illness Time Seen by Provider: 11/28/21 22:13 Source: patient Exam Limitations: no limitations Patient Subjective Stated Complaint: pt states she has a sore throat and ear ache for last week. states pain has increased since she started her antibiotic Triage Nursing Assessment: pt alert and oriented, answers questions approp. pt ambulatory with steady gait noted. respirations nonlabored. skin warm and dry. no drainage from ears at this time. Physician History: 36-year-old female presented in the ER with 1 week history of sore throat, earache more on the left, has been taking Omnicef with no significant relief. Has been having difficulty swallowing. No ear discharge. Timing/Duration: gradual onset Severity: moderate ENT Location: ear (R), ear (L), throat Prearrival Treatment: prescription meds Modifying Factors: Improves With: coughing Associated Symptoms: ear pain (R), ear pain (L), swollen glands, No fever, No ear drainage Allergies/Adverse Reactions: No Known Drug Allergies Allergy (Verified 11/28/21 22:16) Hx Tetanus, Diphtheria Vaccination/Date Given: No Hx Influenza Vaccination/Date Given: No Hx Pneumococcal Vaccination/Date Given: No Immunizations Up to Date: No Travel Risk - International Travel Have you traveled outside of the country in past 3 weeks: No - Coronavirus Screening Are you exhibiting any of the following symptoms?: No Close contact with a COVID-19 positive Pt in past 14-21 Days: No - Vaccine Status Have you recieved a Covid-19 vaccination: No - Review of Systems Constitutional: No Symptoms Eyes: No Symptoms Ears, Nose, & Throat: Ear Pain, Throat Pain, Throat Swelling Respiratory: Cough Cardiac: No Symptoms Abdominal/Gastrointestinal: No Symptoms Musculoskeletal: No Symptoms Skin: No Symptoms Neurological: No Symptoms Psychological: No Symptoms Hematologic/Lymphatic: No Symptoms Immunological/Allergic: No Symptoms - Past Medical History Pertinent Past Medical History: No Neurological History: No Pertinent History ENT History: No Pertinent History Cardiac History: No Pertinent History Respiratory History: No Pertinent History Endocrine Medical History: No Pertinent History Musculoskeletal History: No Pertinent History GI Medical History: GERD, Other History: No Pertinent History Psycho-Social History: No Pertinent History Female Reproductive Disorders: No Pertinent History 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 ,heartburn - Past Surgical History Past Surgical History: Yes Neuro Surgical History: No Pertinent History Cardiac: No Pertinent History Respiratory: No Pertinent History Gastrointestinal: No Pertinent History Genitourinary: No Pertinent History, Other Musculoskeletal: No Pertinent History Female Surgical History: Tubal Ligation Other Surgical History: ureteral transplant - Social History Smoking Status: Current every day smoker How long have you smoked: 6 years Exposure to second hand smoke: Yes Drug Use: none Patient Lives Alone: No - Female History Hx Last Menstrual Period: today Hx Now: No - Nursing Vital Signs Nursing Vital Signs: Initial Vital Signs Temperature 97.1 F 11/28/21 22:03 Pulse Rate 93 H 11/28/21 22:03 Respiratory Rate 18 11/28/21 22:03 Blood Pressure 171/30 11/28/21 22:03 O2 Sat by Pulse Oximetry 100 11/28/21 22:03 Pain Scale Pain Intensity 8 - Physical Exam General Appearance: no apparent distress, alert Eye Exam: bilateral eye: normal inspection, PERRL, EOMI Ear Exam: bilateral ear: auricle normal, canal normal, TM normal Nasal Exam: normal inspection Throat Exam: moist mucus membranes, pharynx swelling, pharynx tenderness, tonsillar swelling Neck Exam: normal inspection, non-tender, supple, full range of motion, lymphadenopathy (R), lymphadenopathy (L) Cardiovascular/Respiratory Exam: normal breath sounds, regular rate/rhythm Neurologic Exam: alert, oriented x 3, cooperative, 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 I will start her on Z-Mendoza along with a short course of steroid. Discussed signs symptoms of worsening needing return to ER which she seems understanding. Counseled pt/family regarding: diagnosis, need for follow-up - Departure Departure Disposition: Home Clinical Impression: Acute pharyngitis Condition: Stable Critical Care Time: No Referrals: EDISON DELGADO [Primary Care Provider] - Follow Up with PCP/3 days Instructions: Sore Throat, Adult (DC), Serous Otitis Media (DC) Additional Instructions: Take Tylenol as needed. Follow-up with primary care for reevaluation. Return to ER for any worsening. Prescriptions: Prednisone 20 mg [Deltasone 20 mg] 60 mg PO DAILY 5 Days #15 tablet Azithromycin 250 mg [Zithromax 250 MG TABLET] 250 mg PO ZPACK #6 tablet
[2021-11-28 23:14] VITALS: BP 158/89; PULSE 98; O2SAT 98
== END 2021-11-28 23:14 | disposition home or self-care (01) ==
LOC: ED 22:00
DX: J02.9 Acute pharyngitis, unspecified (principal); H92.03 Otalgia, bilateral; Z72.0 Tobacco use; Z79.52 Long term (current) use of systemic steroids
CPT/HCPCS: 96372; 99283; J2930; A9270-GY